=== PATIENT | male | born 1995 | race Two or more races ===

== ENCOUNTER 2022-09-17 16:07 | Emergency (ER) | payer OTHER ==
[~2022-09-17] VITALS: Ht 177.8 cm; Wt 69.9 kg
== END 2022-09-17 21:59 | disposition home or self-care (01) ==
LOC: ER 16:07
DX: S09.90XA Unspecified injury of head, initial encounter (principal); S19.89XA Other specified injuries of other specified part of neck, initial encounter; S29.8XXA Other specified injuries of thorax, initial encounter; S39.82XA Other specified injuries of lower back, initial encounter; S09.8XXA Other specified injuries of head, initial encounter; V49.88XA Car occupant (driver) (passenger) injured in other specified transport accidents, initial encounter; Y93.89 Activity, other specified; Y92.89 Other specified places as the place of occurrence of the external cause; Y99.8 Other external cause status